=== PATIENT | male | born 1960 | race Caucasian/White ===

== ENCOUNTER 2016-10-22 07:23 | Inpatient (IN) | payer BC ==
[~2016-10-22] VITALS: Ht 182.9 cm; Wt 136.7 kg
[2016-10-22] MEDS ORDERED: PIPERACILLIN/TAZOBACTAM 4.5 GM/100ML D5W IV STA (07:45)
[2016-10-22] MEDS ORDERED: LEVAQUIN 750MG / 150ML D5W IV STA (07:45)
[2016-10-22] MEDS ORDERED: SODIUM CHLORIDE 0.9% 1000ML 1,000 ML IV STA (07:45)
[2016-10-22] MEDS ORDERED: ACETAMINOPHEN 500 MG TAB PO STA (07:45)
[2016-10-22] MEDS ORDERED: GEMF600T3 PO (07:49)
[2016-10-22] MEDS ORDERED: IBUP-1050 PO (07:49)
[2016-10-22] MEDS ORDERED: METF-384 PO (07:49)
[2016-10-22] MEDS ORDERED: GLIM2TAB2 PO (07:49)
[2016-10-22] MEDS ORDERED: BNC/20125 PO (07:49)
--- NOTE | 2016-10-22 07:54 | EMERGENCY ROOM VISIT NOTE ---
History First contact with patient: 07:34 Chief Complaint: FEVER Stated Complaint: BODY ACHES,NAUSEA History of Present Illness The patient is a 56 year old male who presents to the Emergency Room via private vehicle accompanied by with complaints of "body aches, nausea". The patient states that last Monday, 6 days ago, he began with what he aches and chills throughout his entire body. He states that since then he has been taking ibuprofen without relief and has associated sweating, and a rash in left groin. He did vomit once today, and has associated shortness of breath with a nonproductive cough which began today. He rates his overall pain as a 7/10, and is worse in the legs radiating up into his back and arms. He denies any chest pain, diarrhea, abdominal pain, urinary symptoms, having this before. He does have diabetes which he takes metformin. He notes that his recent blood sugars have been repeated. Review of Systems A complete 10-point Review of Systems was discussed with the patient, with pertinent positives and negatives listed in the History of Present Illness. All remaining Review of Systems questions can be considered negative unless otherwise specified. 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 Current/Historical Medications Scheduled Gemfibrozil (Lopid), 1 TAB PO BID Glimepiride (Glimepiride), 1 TAB PO DAILY Metformin Hcl (Glucophage), 1,000 MG PO BID Olmesartan/Hctz (Benicar Hct 20/12.5), 1 TAB PO DAILY Scheduled PRN Ibuprofen (Advil), 400 MG PO 3-4XD PRN for Fever Allergies Coded Allergies: Meperidine (Verified Allergy, Unknown, RASH, 10/22/16) Statins (Verified Allergy, Unknown, DELIRIUM, 10/22/16) cuases violent behavior Physical Exam Vital Signs Date Time Temp Pulse Resp B/P Pulse Ox O2 Delivery O2 Flow Rate FiO2 10/22/16 08:55 110 21 137/74 95 Nasal Cannula 2.0 10/22/16 08:22 117 18 105/60 92 Nasal Cannula 2.0 10/22/16 08:20 113 10/22/16 08:19 92 Nasal Cannula 2.0 10/22/16 07:39 Nasal Cannula 2.0 10/22/16 07:28 38.1 143 20 94/67 90 Room Air Physical Exam VITAL SIGNS - Vital signs and nursing notes were reviewed. Patient is febrile at 38.1, hypotensive at 94/64, tachycardic at a rate of 143 bpm, and is saturating on room air 90%. GENERAL -56-year-old male appearing his stated age who is in no acute distress. Patient is diaphoretic, and is warm to the touch. Communicates well with provider and answers questions appropriately. SKIN - in the left inguinal crease, there is a fine rash resembling a form of tinea. He is diaphoretic. HEAD - NC/AT. EYES - PERRL with EOMI bilaterally. Sclera anicteric. Palpebral conjunctiva pink and moist with no injection noted. EARS - No deformities of external structures noted on gross examination bilaterally. No pain elicited with palpation of the tragus bilaterally. External auditory canals without discharge or otorrhea. Tympanic membranes pearly ramirez without retraction or bulging. No fluid or purulent material visualized behind the TM. Handle of malleus, umbo, cone of light, pars tensa/ flaccid all easily visualized. NOSE - Midline and without cyanosis. No epistaxis or purulent drainage noted. Septum midline without deviation or septal hematoma noted. MOUTH/OROPHARYNX - Without perioral cyanosis. Buccal mucosa pink and moist and without leukoplakia. Tongue midline with equal elevation of palate bilaterally. No tonsillar hypertrophy, erythema, or exudates noted. Fair dentition noted. NECK - Neck with FROM. Supple to palpation. No lymphadenopathy noted. No nuchal rigidity. LUNGS - Chest wall symmetric without accessory muscle use, intercostals retractions, or central cyanosis. Patient's breath sounds are diminished bilaterally. No wheezes, rales, or rhonchi appreciated. CARDIAC - RRR with S1/S2. No murmur, rubs, or gallops appreciated. ABDOMEN - Abdominal contour without pulsations or visible masses. BS normoactive all four quadrants. No tenderness, palpable masses, hepatosplenomegaly, or ascites noted. EXTREMITIES - No clubbing or peripheral cyanosis. No pretibial edema present. NEUROLOGIC - Cranial nerves II through XII grossly intact. Sensory intact to light touch throughout. PSYCH - A&Ox3 and cooperates fully with examiner. Pt is very pleasant and interacts well with examiner. Medical Decision & Procedures ER Provider Diagnostic Interpretation: CHEST ONE VIEW PORTABLE CLINICAL HISTORY: Dyspnea, febrile COMPARISON STUDY: No previous studies for comparison. FINDINGS: Parenchymal infiltrate right base. Mild cardiomegaly. Lungs otherwise are clear. IMPRESSION: Infiltrate right base. Electronically signed by: Armani Escobar M.D. 10/22/2016 8:08 AM Dictated Date/Time: 10/22/2016 8:07 AM Laboratory Results 10/22/16 08:10 Red Blood Count 4.39, Mean Corpuscular Volume 84.1, Mean Corpuscular Hemoglobin 28.0, Mean Corpuscular Hemoglobin Concent 33.3, Mean Platelet Volume 9.6, Neutrophils (%) (Auto) 86.7, Lymphocytes (%) (Auto) 7.0, Monocytes (%) (Auto) 6.0, Eosinophils (%) (Auto) 0.0, Basophils (%) (Auto) 0.1, Neutrophils # (Auto) 7.32, Lymphocytes # (Auto) 0.59, Monocytes # (Auto) 0.51, Eosinophils # (Auto) 0.00, Basophils # (Auto) 0.01 10/22/16 08:10 Test 10/22/16 08:10 10/22/16 08:15 10/22/16 08:30 White Blood Count 8.45 K/uL (4.8-10.8) Red Blood Count 4.39 M/uL (4.7-6.1) Hemoglobin 12.3 g/dL (14.0-18.0) Hematocrit 36.9 % (42-52) Mean Corpuscular Volume 84.1 fL (80-100) Mean Corpuscular Hemoglobin 28.0 pg (25-34) Mean Corpuscular Hemoglobin Concent 33.3 g/dl (32-36) Platelet Count 171 K/uL (130-400) Mean Platelet Volume 9.6 fL (7.4-10.4) Neutrophils (%) (Auto) 86.7 % Lymphocytes (%) (Auto) 7.0 % Monocytes (%) (Auto) 6.0 % Eosinophils (%) (Auto) 0.0 % Basophils (%) (Auto) 0.1 % Neutrophils # (Auto) 7.32 K/uL (1.4-6.5) Lymphocytes # (Auto) 0.59 K/uL (1.2-3.4) Monocytes # (Auto) 0.51 K/uL (0.11-0.59) Eosinophils # (Auto) 0.00 K/uL (0-0.5) Basophils # (Auto) 0.01 K/uL (0-0.2) RDW Standard Deviation 40.5 fL (36.4-46.3) RDW Coefficient of Variation 13.3 % (11.5-14.5) Immature Granulocyte % (Auto) 0.2 % Immature Granulocyte # (Auto) 0.02 K/uL (0.00-0.02) Anion Gap 9.0 mmol/L (3-11) Est Creatinine Clear Calc Drug Dose 97.6 ml/min Estimated GFR () 77.3 Estimated GFR (Non- 66.7 BUN/Creatinine Ratio 21.4 (10-20) Calcium Level 9.0 mg/dl (8.5-10.1) Magnesium Level 1.8 mg/dl (1.8-2.4) Total Bilirubin 0.6 mg/dl (0.2-1) Aspartate Amino Transf (AST/SGOT) 31 U/L (15-37) Alanine Aminotransferase (ALT/SGPT) 30 U/L (12-78) Alkaline Phosphatase 86 U/L (45-117) Total Protein 7.8 gm/dl (6.4-8.2) Albumin 3.3 gm/dl (3.4-5.0) Globulin 4.5 gm/dl (2.5-4.0) Albumin/Globulin Ratio 0.7 (0.9-2) Lipase 177 U/L (73-393) 25-Hydroxy Vitamin D Total 63.7 ng/ml (30-100) Beta-Hydroxybutyric Acid 1.26 mg/dL (0.2-2.81) Chemistry Specimen Hemolysis Hepatitis C Antibody Screen NEG (NEG) Bedside Lactic Acid Venous 0.60 mmol/L (0.90-1.70) Urine Color DK YELLOW Urine Appearance CLEAR (CLEAR) Urine pH 5.0 (4.5-7.5) Urine Specific [place] 1.032 (1.000-1.030) Urine Protein 1+ (NEG) Urine Glucose (UA) NEG (NEG) Urine Ketones TRACE (NEG) Urine Occult Blood NEG (NEG) Urine Nitrite NEG (NEG) Urine Bilirubin NEG (NEG) Urine Urobilinogen NEG (NEG) Urine Leukocyte Esterase NEG (NEG) Urine WBC (Auto) 1-5 /hpf (0-5) Urine RBC (Auto) 5-10 /hpf (0-4) Urine Hyaline Casts (Auto) 5-10 /lpf (0-5) Urine Epithelial Cells (Auto) >30 /lpf (0-5) Urine Bacteria (Auto) NEG (NEG) Medications Administered Medications (Trade) Dose Ordered Sig/Kenrick Route Start Time Stop Time Status Last Admin Dose Admin Sodium Chloride (Nss 1000ml) 1,000 ml @ 999 mls/hr Q1H1M STAT IV 10/22/16 07:45 10/22/16 08:45 DC 10/22/16 08:26 999 MLS/HR Piperacillin Sod/ Tazobactam Sod (Zosyn Iv) 4.5 gm NOW STAT IV 10/22/16 07:45 10/22/16 07:52 DC 10/22/16 08:52 4.5 GM Levofloxacin (Levaquin / D5W) 750 mg NOW STAT IV 10/22/16 07:45 10/22/16 07:52 DC 10/22/16 11:03 750 MG Acetaminophen (Tylenol Tab) 1,000 mg NOW STAT PO 10/22/16 07:45 10/22/16 07:52 DC 10/22/16 08:26 1,000 MG Medical Decision Patient was seen and evaluated as above. Patient presents with hypotension, tachycardia, a fever and is diaphoretic. I'm concerned for sepsis. Stat IV access was initiated, and the above workup was performed. Patient was provided oxygen to improve his saturation. He is diaphoretic, was bolused with saline, and was given 4.5 mg of Zosyn and 750 mg of Levaquin. This is to treat a potential pneumonia clinically. X-ray verifies infiltrate right base. This was read by myself and the radiologist. I agree with radiologist findings. Patient was given morphine and Zofran for his pain, and subsequently Tylenol to help the fever. He was reevaluated and was feeling better, but persisted to be tachycardic, slightly hypertensive and febrile. I believe this time he can benefit from inpatient admission as I'm concerned that he has sepsis secondary to pneumonia. I did speak with my attending as well as the admitting physician who agreed to evaluate the patient. Please refer to further documentation regarding the patient's stay. It is of additional note that the patient's EKG reveals Sinus tachycardia Possible Left atrial enlargement, Incomplete right bundle branch block, Borderline ECG and No previous ECGs available. There is no previous for comparison. Patient was educated upon these findings. He was educated upon his lower for findings. There is no white count, and his lactic is diminished however clinically he does appear to be septic. Her blood cell count at 4.39, and hemoglobin of 12.3. BUN elevated at 26, glucose at 177, lactic acid 0.6, beta hydroxy Mateer casts and 1.26. Urine unremarkable for acute process. In evaluation treatment this patient the following differential diagnoses were entertained: Sepsis, pneumonia, SIRS, among others. Impression Primary Impression: Fever Additional Impressions: Anemia Pneumonia Departure Information Dispostion Admitted as an inpatient Condition FAIR Referrals Travis Dominique M.D. (PCP) Patient Instructions My [facility] Problem Qualifiers
--- NOTE | 2016-10-22 08:09 | DIAGNOSTIC IMAGING REPORT ---
CHEST ONE VIEW PORTABLE CLINICAL HISTORY: Dyspnea, febrile COMPARISON STUDY: No previous studies for comparison. FINDINGS: Parenchymal infiltrate right base. Mild cardiomegaly. Lungs otherwise are clear. IMPRESSION: Infiltrate right base. Electronically signed by: Armani Escobar M.D. 10/22/2016 8:08 AM Dictated Date/Time: 10/22/2016 8:07 AM
[2016-10-22 08:46] LABS: BASO % 0.1 %; BASO ABS # 0.01 K/uL (0-0.2); COMPLETE YES; HEMATOCRIT 36.9 % (42-52); IG% 0.2 %; LYMPH ABS # 0.59 K/uL (1.2-3.4); MEAN CELL VOLUME 84.1 fL (80-100); MEAN CORPUSCULAR HGB CONC 33.3 g/dl (32-36); MEAN PLATELET VOLUME 9.6 fL (7.4-10.4); NEUT % 86.7 %; PLATELET COUNT 171 K/uL (130-400); RED BLOOD COUNT 4.39 M/uL (4.7-6.1); WHITE BLOOD COUNT 8.45 K/uL (4.8-10.8)
[2016-10-22 08:53] LABS: URINE APPEARANCE CLEAR (CLEAR); URINE BILIRUBIN NEG (NEG); URINE COLOR DK YELLOW; URINE EPITHELIAL CELL AUTO >30 /lpf (0-5); URINE NITRITE NEG (NEG); URINE SPECIFIC GRAVITY 1.032 (1.000-1.030); UROBILINOGEN NEG (NEG); ZZUR CULT IF INDIC CLEAN CATCH NO
[2016-10-22 09:06] LABS: MANUAL MICROSCOPIC REQUIRED? NO; REVIEW REQ? NO
[2016-10-22 09:10] LABS: ALB/GLOB RATIO 0.7 (0.9-2); BETA-HYDROXYBUTYRATE 1.26 mg/dL (0.2-2.81); BUN/CREATININE RATIO 21.4 (10-20); CREATININE 1.2 mg/dl (0.60-1.40); MAGNESIUM 1.8 mg/dl (1.8-2.4); POTASSIUM 3.9 mmol/L (3.5-5.1)
[2016-10-22] MEDS ORDERED: ALBUT/IPRATROP 3MG/0.5MG NEB 3 ML VIAL INH PRN (10:30)
[2016-10-22] MEDS ORDERED: IBUPROFEN 200 MG TAB PO PRN (10:30)
[2016-10-22] MEDS ORDERED: ACETAMINOPHEN 325 MG TAB PO PRN (10:30)
[2016-10-22] MEDS ORDERED: POLYETHYLENE (MIRALAX) 17 GM PACK PO PRN (10:30)
[2016-10-22] MEDS ORDERED: ALUMINUM/MAGNESIUM/SIMETH (MAALOX MAX) 30 ML UDC PO PRN (10:30)
[2016-10-22] MEDS ORDERED: ONDANSETRON INJ 2 MG/ML 2 ML VIAL IV PRN (10:30)
[2016-10-22] MEDS ORDERED: MAGNESIUM HYDROXIDE SUSP 30 ML UDC PO PRN (10:30)
[2016-10-22] MEDS ORDERED: DEXTROSE 50% 50 ML SYR IV PRN (10:45)
[2016-10-22] MEDS ORDERED: GLUCOSE 10 TABS/TUBE PO PRN (10:45)
[2016-10-22] MEDS ORDERED: GLUCAGON FOR INJ 1 MG VIAL SQ PRN (10:45)
[2016-10-22] MEDS ORDERED: GLUCOSE 40% GEL 15 GM TUBE PO PRN (10:45)
[2016-10-22 10:53] VITALS: O2SAT 95; Ht 182.9 cm; Wt 136.7 kg
--- NOTE | 2016-10-22 11:47 | History and Physical ---
History & Physical Date & Time of Service: October 22, 2016 at 11:41 Chief Complaint: Body Aches,Nausea Primary Care Physician: Travis Dominique M.D. Social History Smoking Status: Never Smoker Multi-Drug Resistant Organisms History of MDRO: No Allergies Coded Allergies: Meperidine (Verified Allergy, Unknown, RASH, 10/22/16) Statins (Verified Allergy, Unknown, DELIRIUM, 10/22/16) cuases violent behavior Home Medications Scheduled Gemfibrozil (Lopid), 1 TAB PO BID Glimepiride (Glimepiride), 1 TAB PO DAILY Metformin Hcl (Glucophage), 1,000 MG PO BID Olmesartan/Hctz (Benicar Hct 20/12.5), 1 TAB PO DAILY Scheduled PRN Ibuprofen (Advil), 400 MG PO 3-4XD PRN for Fever Physical Exam Vital Signs Date Time Temp Pulse Resp B/P Pulse Ox O2 Delivery O2 Flow Rate FiO2 10/22/16 11:19 103 19 117/72 96 10/22/16 11:03 103 19 117/72 93 Nasal Cannula 2.0 10/22/16 10:58 100 10/22/16 10:53 95 Nasal Cannula 2.0 10/22/16 08:55 110 21 137/74 95 Nasal Cannula 2.0 10/22/16 08:22 117 18 105/60 92 Nasal Cannula 2.0 10/22/16 08:20 113 10/22/16 08:19 92 Nasal Cannula 2.0 10/22/16 07:39 Nasal Cannula 2.0 10/22/16 07:28 38.1 143 20 94/67 90 Room Air Diagnostics Laboratory Results Results Past 24 Hours Test 10/22/16 08:10 10/22/16 08:15 10/22/16 08:30 10/22/16 11:00 Range/Units White Blood Count 8.45 4.8-10.8 K/uL Red Blood Count 4.39 4.7-6.1 M/uL Hemoglobin 12.3 14.0-18.0 g/dL Hematocrit 36.9 42-52 % Mean Corpuscular Volume 84.1 80-100 fL Mean Corpuscular Hemoglobin 28.0 25-34 pg Mean Corpuscular Hemoglobin Concent 33.3 32-36 g/dl Platelet Count 171 130-400 K/uL Mean Platelet Volume 9.6 7.4-10.4 fL Neutrophils (%) (Auto) 86.7 % Lymphocytes (%) (Auto) 7.0 % Monocytes (%) (Auto) 6.0 % Eosinophils (%) (Auto) 0.0 % Basophils (%) (Auto) 0.1 % Neutrophils # (Auto) 7.32 1.4-6.5 K/uL Lymphocytes # (Auto) 0.59 1.2-3.4 K/uL Monocytes # (Auto) 0.51 0.11-0.59 K/uL Eosinophils # (Auto) 0.00 0-0.5 K/uL Basophils # (Auto) 0.01 0-0.2 K/uL RDW Standard Deviation 40.5 36.4-46.3 fL RDW Coefficient of Variation 13.3 11.5-14.5 % Immature Granulocyte % (Auto) 0.2 % Immature Granulocyte # (Auto) 0.02 0.00-0.02 K/uL Sodium Level 136 136-145 mmol/L Potassium Level 3.9 3.5-5.1 mmol/L Chloride Level 100 98-107 mmol/L Carbon Dioxide Level 27 21-32 mmol/L Anion Gap 9.0 3-11 mmol/L Blood Urea Nitrogen 26 7-18 mg/dl Creatinine 1.20 0.60-1.40 mg/dl Est Creatinine Clear Calc Drug Dose 97.6 ml/min Estimated GFR () 77.3 Estimated GFR (Non- 66.7 BUN/Creatinine Ratio 21.4 10-20 Random Glucose 177 70-99 mg/dl Calcium Level 9.0 8.5-10.1 mg/dl Magnesium Level 1.8 1.8-2.4 mg/dl Total Bilirubin 0.6 0.2-1 mg/dl Aspartate Amino Transf (AST/SGOT) 31 15-37 U/L Alanine Aminotransferase (ALT/SGPT) 30 12-78 U/L Alkaline Phosphatase 86 45-117 U/L Total Protein 7.8 6.4-8.2 gm/dl Albumin 3.3 3.4-5.0 gm/dl Globulin 4.5 2.5-4.0 gm/dl Albumin/Globulin Ratio 0.7 0.9-2 Lipase 177 73-393 U/L Beta-Hydroxybutyric Acid 1.26 0.2-2.81 mg/dL Chemistry Specimen Hemolysis Bedside Lactic Acid Venous 0.60 0.90-1.70 mmol/L Urine Color DK YELLOW Urine Appearance CLEAR CLEAR Urine pH 5.0 4.5-7.5 Urine Specific [place] 1.032 1.000-1.030 Urine Protein 1+ NEG Urine Glucose (UA) NEG NEG Urine Ketones TRACE NEG Urine Occult Blood NEG NEG Urine Nitrite NEG NEG Urine Bilirubin NEG NEG Urine Urobilinogen NEG NEG Urine Leukocyte Esterase NEG NEG Urine WBC (Auto) 1-5 0-5 /hpf Urine RBC (Auto) 5-10 0-4 /hpf Urine Hyaline Casts (Auto) 5-10 0-5 /lpf Urine Epithelial Cells (Auto) >30 0-5 /lpf Urine Bacteria (Auto) NEG NEG Microbiology Results 10/22/16 Blood Culture, Received Pending 10/22/16 Blood Culture, Received Pending Impression Assessment and Plan admit #[id number] Advanced Directives Existing Living Will: No Existing Power of Interpersonal Communications Professor: No VTE Prophylaxis VTE Risk Assessment Done? Y/N: Yes Risk Level: Moderate Given or contraindicated: Enoxaparin (Lovenox)SQ
[2016-10-22 12:00] VITALS: BP 129/78; PULSE 102; TEMP 37; O2SAT 97
[2016-10-22] MEDS ORDERED: SODIUM CHLORIDE 0.9% 1000ML 1,000 ML IV SCH (12:00)
--- NOTE | 2016-10-22 12:11 | HISTORY & PHYSICAL EXAMINATION ---
DATE OF ADMISSION: 10/22/2016 ADMISSION HISTORY AND PHYSICAL CHIEF COMPLAINT: Chills, body aches and weakness. HISTORY OF PRESENT ILLNESS: The patient is a very pleasant 56-year-old male who notes that around Monday night, so not quite a week ago he started just with feeling chills, weakness and malaise. He has had off again on again true shaking chills, fevers. He has not checked his temperature much, his son checked his temperature once or twice and saw things in the high 99s, but he also notes that there were definitely times he felt more feverish and just did not have access to a thermometer and this has been going on again off again for about the last week. He was seen at his PCP's office yesterday, symptoms being nonspecific, they checked labs, he had not heard back from things yet, but then this morning he was continuing to feel worse, so he came to the ER for further evaluation. REVIEW OF SYSTEMS: Negative for cough, shortness of breath, chest pain. Negative for any nausea, vomiting, diarrhea. Positive for the fevers, chills, sweats and general weakness. Review of systems is otherwise negative except for as above. PAST MEDICAL HISTORY: Includes diabetes and hyperlipidemia and hypertension. MEDICATIONS: Lopid, uncertain dose b.i.d., I believe probably 600 mg; glimepiride 1 tab daily, Advil 400 mg q.i.d. p.r.n., fevers and aches; metformin 1000 mg b.i.d. and Benicar/HCT 20/12.5 daily. ALLERGIES: INCLUDE MEPERIDINE AND STATINS. PAST SURGICAL HISTORY: He has had no chest surgeries and he has had a cholecystectomy. SOCIAL HISTORY: He is never a smoker. 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 FAMILY HISTORY: No notable family history at all. Most notably no family history of pulmonary or immunologic diseases. PHYSICAL EXAMINATION: VITAL SIGNS: Initial temp 38.1, pulse 143, respiratory rate 20, blood pressure 94/67, 90% on room air. GENERAL: He is awake, alert, oriented x3, fatigued appearing, but otherwise in no acute distress. HEENT: Normocephalic, atraumatic. Mucous membranes are moist. CARDIOVASCULAR: Now regular to maybe slightly tachycardic without rubs, murmurs, or gallops. LUNGS: Overall clear to auscultation, but knowing his chest x-ray before going in the room with very subjective bias, it is maybe slightly coarse with a faintest of rales at the right base but essentially sounds overall clear without other rales, rhonchi, or wheezes. No accessory muscle use. ABDOMEN: Soft, mildly distended, nontender. No masses or organomegaly. EXTREMITIES: Without cyanosis, clubbing or edema. No calf tenderness. SKIN: Shows no rashes, no pallor or icterus. NEUROLOGIC: Shows cranial nerves II-XII to be grossly intact. Gross motor and sensory are intact. MUSCULOSKELETAL: Shows a mild degree of right lower thoracic hypertonicity and decreased range of motion of his rib cage, myofascial release and balanced ligamentous tension were done with a degree of improvement in tissue texture changes. MENTAL STATUS: Shows good recent and remote recall. Normal mood and affect. Good judgment and insight. LABS AND DIAGNOSTICS: CBC shows a white count of 8.45, hemoglobin 12.3, platelets 171. Complete metabolic panel with a sodium 136, potassium 3.9, chloride 100, CO2 27, BUN 26, creatinine 1.2. Calcium 9, glucose 177, mag 1.8, total bili 0.6 with an AST of 31, ALT of 30, alkaline phosphatase 86, total protein 7.8, albumin 3.3, lipase 177, beta hydroxybutyrate 1.26. Lactate 0.6. Hepatitis C screen per guidelines is pending. Urinalysis - dark yellow, clear, specific gravity 1.032, trace ketones, greater than 30 epithelial cells. Chest x-ray reviewed by me as well as radiology shows a right base infiltrate. Radiology also noted mild cardiomegaly. ASSESSMENT AND PLAN: 1. Sepsis. This appears to be due to a right lower lobe pneumonia. 2. Acute mild but early hypoxic respiratory failure. This appears to be due to the pneumonia, oxygen supportive care and nebs p.r.n. 3. Right lower lobe community-acquired pneumonia. See above as far as "fallout" as well as a mildly elevated creatinine, although his baseline is not clear. His last creatinine I have on record is 0.9 from 6 years ago. At any rate, he is low risk for resistant pathogens given that he has not been hospitalized, dialysis, long term more antibiotics recently at all. He was started on Levaquin and Zosyn in the Emergency Room. We will continue the Levaquin. We had an extensive discussion about antibiotic choices for community-acquired pneumonia and the risk of tendinopathy or tendon rupture with Levaquin versus the raising risk of Clostridium difficile by altering his regimen yet again to Zithromax, Rocephin and after discussion, he is able to take it easy at work, so we opted to continue the Levaquin. Will utilize oxygen, nebulizers, supportive care, intravenous fluids for the sepsis part of it as well and given his occupational exposures to smoke while controversial, I did recommend a follow up chest x-ray in about 6 weeks to ensure clearing. 4. Uncontrolled type 2 diabetes. He notes that at his last visit, his A1c was seven point something and it was high enough that his PCP increased medications. We had an extensive discussion on the critical importance of lifestyle to control and/or put diabetes in remission and discussed how the diabetes uncontrolled certainly would be suppressing his immune system allowing infections like this to happen more easily. Will continue his Glucovance given that he does not have any florid renal failure, use his fingersticks and supplemental insulin as needed. 5. Wheezing and snoring. Given his smoke exposure at work and his noticing him wheezing, certainly it seems reasonable to get pulmonary function tests as an outpatient. He believes this will occur as part of HAZIAT physical this summer, if not, I would ask him to be referred to it and in regards to snoring, certainly with the snoring and his body habitus a sleep study appears to be warranted. 6. Hypertension. Given his sepsis, tachycardia and slightly elevated creatinine, will hold off on his antihypertensives until he is more hemodynamically stable. 7. Slightly elevated creatinine, uncertain what his baseline is these days. Certainly, it may be risen slightly because of the sepsis. Will follow up a basic metabolic panel in the morning. 8. Deep venous thrombosis prophylaxis, Lovenox. JAKY
[2016-10-22] MEDS: INSULIN ASPART 100 UNITS/ML 3 ML PEN SC SCH ×3 (12:15→20:14)
[2016-10-22 13:11] LABS: INR 1.1 (0.9-1.1); PARTIAL THROMBOPLASTIN RATIO 1.2; PROTHROMBIN TIME (PATIENT) 11.8 SECONDS (9.0-12.0)
[2016-10-22] MEDS: SODIUM CHLOR 0.45% + 20MEQ KCL 1,000 ML IV SCH ×2 (13:39→20:11)
[2016-10-22 14:53] VITALS: BP 130/68; PULSE 119; TEMP 38.1; O2SAT 91
[2016-10-22 17:18] VITALS: TEMP 37.4
[2016-10-22] MEDS: METFORMIN HCL 500 MG TAB PO SCH (17:19)
[2016-10-22 20:00] VITALS: O2SAT 91
[2016-10-22] MEDS: GEMFIBROZIL 600 MG TAB PO SCH (20:10)
[2016-10-22] MEDS: ENOXAPARIN 40 MG/0.4 ML SYR SQ SCH (20:14)
[2016-10-22 22:55] VITALS: BP 106/71; PULSE 124; TEMP 37.7; O2SAT 96
[2016-10-23] VITALS: O2SAT 91
[2016-10-23] MEDS: SODIUM CHLOR 0.45% + 20MEQ KCL 1,000 ML IV SCH ×3 (03:57→19:57)
[2016-10-23 05:37] LABS: BASO % 0.1 %; BASO ABS # 0.01 K/uL (0-0.2); COMPLETE YES; HEMATOCRIT 33.6 % (42-52); IG% 0.3 %; LYMPH % 12.6 %; LYMPH ABS # 0.86 K/uL (1.2-3.4); MEAN CELL VOLUME 85.3 fL (80-100); MEAN CORPUSCULAR HEMOGLOBIN 27.9 pg (25-34); MEAN CORPUSCULAR HGB CONC 32.7 g/dl (32-36); MEAN PLATELET VOLUME 9.1 fL (7.4-10.4); MONO % 15.5 %; NEUT % 71.5 %; PLATELET COUNT 142 K/uL (130-400); RED BLOOD COUNT 3.94 M/uL (4.7-6.1); WHITE BLOOD COUNT 6.85 K/uL (4.8-10.8)
[2016-10-23 06:11] LABS: BUN/CREATININE RATIO 16.4 (10-20); CALCIUM 8.4 mg/dl (8.5-10.1); CREATININE 0.95 mg/dl (0.60-1.40)
[2016-10-23 07:18] VITALS: BP 106/68; PULSE 84; TEMP 36.7; O2SAT 98
[2016-10-23] MEDS: INSULIN ASPART 100 UNITS/ML 3 ML PEN SC SCH ×4 (08:31→20:58)
[2016-10-23] MEDS: GLIMEPIRIDE 2 MG TAB PO SCH (08:40)
[2016-10-23] MEDS: GEMFIBROZIL 600 MG TAB PO SCH ×2 (08:40→19:57)
[2016-10-23] MEDS: METFORMIN HCL 500 MG TAB PO SCH ×2 (08:40→17:20)
[2016-10-23] MEDS: LEVOFLOXACIN 750 MG TAB PO SCH (08:41)
[2016-10-23 09:42] VITALS: O2SAT 94
[2016-10-23 11:54] VITALS: O2SAT 96
--- NOTE | 2016-10-23 12:00 | Progress Note ---
Subjective Date of Service: October 23, 2016. Subjective pt states he feels better, less fever and chills, some cough Problem List Medical Problems: (1) Anemia Status: Acute (2) Fever Status: Acute Review of Systems Constitutional: + weakness, No chills, No fever Respiratory: + cough, + sputum, No dyspnea on exertion, No shortness of breath Abdomen: No diarrhea, No nausea, No pain, No vomiting Male : No dysuria, No urinary frequency Psychiatric: No anhedonism, No depression symptoms Objective Vital Signs Date Time Temp Pulse Resp B/P Pulse Ox O2 Delivery O2 Flow Rate FiO2 10/23/16 07:18 36.7 84 20 106/68 98 Nasal Cannula 3.0 10/23/16 00:00 91 Nasal Cannula 2.0 10/22/16 22:55 37.7 124 20 106/71 96 Nasal Cannula 3.0 10/22/16 20:00 91 Nasal Cannula 2.0 10/22/16 17:18 37.4 10/22/16 14:53 38.1 119 20 130/68 91 Nasal Cannula 2.0 10/22/16 12:00 37.0 102 18 129/78 97 Nasal Cannula 2.0 10/22/16 11:19 103 19 117/72 96 10/22/16 11:03 103 19 117/72 93 Nasal Cannula 2.0 10/22/16 10:58 100 10/22/16 10:53 95 Nasal Cannula 2.0 10/22/16 08:55 110 21 137/74 95 Nasal Cannula 2.0 10/22/16 08:22 117 18 105/60 92 Nasal Cannula 2.0 10/22/16 08:20 113 10/22/16 08:19 92 Nasal Cannula 2.0 10/22/16 07:39 Nasal Cannula 2.0 10/22/16 07:28 38.1 143 20 94/67 90 Room Air Physical Exam General Appearance: WD/WN, + obese Neck: supple, no JVD Respiratory/Chest: chest non-tender, + decreased breath sounds, + rhonchi ( right base) Cardiovascular: regular rate, rhythm, no murmur Abdomen: normal bowel sounds, non tender, soft Extremities: no pedal edema, no calf tenderness Neurologic/Psychiatric: alert, oriented x 3 Laboratory Results Last 24 Hours Test 10/22/16 08:10 10/22/16 08:15 10/22/16 08:30 10/22/16 12:08 White Blood Count 8.45 K/uL Red Blood Count 4.39 M/uL Hemoglobin 12.3 g/dL Hematocrit 36.9 % Mean Corpuscular Volume 84.1 fL Mean Corpuscular Hemoglobin 28.0 pg Mean Corpuscular Hemoglobin Concent 33.3 g/dl Platelet Count 171 K/uL Mean Platelet Volume 9.6 fL Neutrophils (%) (Auto) 86.7 % Lymphocytes (%) (Auto) 7.0 % Monocytes (%) (Auto) 6.0 % Eosinophils (%) (Auto) 0.0 % Basophils (%) (Auto) 0.1 % Neutrophils # (Auto) 7.32 K/uL Lymphocytes # (Auto) 0.59 K/uL Monocytes # (Auto) 0.51 K/uL Eosinophils # (Auto) 0.00 K/uL Basophils # (Auto) 0.01 K/uL RDW Standard Deviation 40.5 fL RDW Coefficient of Variation 13.3 % Immature Granulocyte % (Auto) 0.2 % Immature Granulocyte # (Auto) 0.02 K/uL Sodium Level 136 mmol/L Potassium Level 3.9 mmol/L Chloride Level 100 mmol/L Carbon Dioxide Level 27 mmol/L Anion Gap 9.0 mmol/L Blood Urea Nitrogen 26 mg/dl Creatinine 1.20 mg/dl Est Creatinine Clear Calc Drug Dose 97.6 ml/min Estimated GFR () 77.3 Estimated GFR (Non- 66.7 BUN/Creatinine Ratio 21.4 Random Glucose 177 mg/dl Calcium Level 9.0 mg/dl Magnesium Level 1.8 mg/dl Total Bilirubin 0.6 mg/dl Aspartate Amino Transf (AST/SGOT) 31 U/L Alanine Aminotransferase (ALT/SGPT) 30 U/L Alkaline Phosphatase 86 U/L Total Protein 7.8 gm/dl Albumin 3.3 gm/dl Globulin 4.5 gm/dl Albumin/Globulin Ratio 0.7 Lipase 177 U/L 25-Hydroxy Vitamin D Total 63.7 ng/ml Beta-Hydroxybutyric Acid 1.26 mg/dL Chemistry Specimen Hemolysis Hepatitis C Antibody Screen NEG Bedside Lactic Acid Venous 0.60 mmol/L Urine Color DK YELLOW Urine Appearance CLEAR Urine pH 5.0 Urine Specific [place] 1.032 Urine Protein 1+ Urine Glucose (UA) NEG Urine Ketones TRACE Urine Occult Blood NEG Urine Nitrite NEG Urine Bilirubin NEG Urine Urobilinogen NEG Urine Leukocyte Esterase NEG Urine WBC (Auto) 1-5 /hpf Urine RBC (Auto) 5-10 /hpf Urine Hyaline Casts (Auto) 5-10 /lpf Urine Epithelial Cells (Auto) >30 /lpf Urine Bacteria (Auto) NEG Bedside Glucose 154 mg/dl Test 10/22/16 12:31 10/22/16 20:15 10/23/16 05:25 Prothrombin Time 11.8 SECONDS Prothromb Time International Ratio 1.1 Activated Partial Thromboplast Time 31.1 SECONDS Partial Thromboplastin Ratio 1.2 Bedside Glucose 136 mg/dl White Blood Count 6.85 K/uL Red Blood Count 3.94 M/uL Hemoglobin 11.0 g/dL Hematocrit 33.6 % Mean Corpuscular Volume 85.3 fL Mean Corpuscular Hemoglobin 27.9 pg Mean Corpuscular Hemoglobin Concent 32.7 g/dl Platelet Count 142 K/uL Mean Platelet Volume 9.1 fL Neutrophils (%) (Auto) 71.5 % Lymphocytes (%) (Auto) 12.6 % Monocytes (%) (Auto) 15.5 % Eosinophils (%) (Auto) 0.0 % Basophils (%) (Auto) 0.1 % Neutrophils # (Auto) 4.90 K/uL Lymphocytes # (Auto) 0.86 K/uL Monocytes # (Auto) 1.06 K/uL Eosinophils # (Auto) 0.00 K/uL Basophils # (Auto) 0.01 K/uL RDW Standard Deviation 42.1 fL RDW Coefficient of Variation 13.4 % Immature Granulocyte % (Auto) 0.3 % Immature Granulocyte # (Auto) 0.02 K/uL Sodium Level 139 mmol/L Potassium Level 4.0 mmol/L Chloride Level 104 mmol/L Carbon Dioxide Level 31 mmol/L Anion Gap 4.0 mmol/L Blood Urea Nitrogen 16 mg/dl Creatinine 0.95 mg/dl Est Creatinine Clear Calc Drug Dose 122.9 ml/min Estimated GFR () 102.6 Estimated GFR (Non- 88.5 BUN/Creatinine Ratio 16.4 Random Glucose 127 mg/dl Calcium Level 8.4 mg/dl Assessment and Plan 56 M with RLL pneumonia with history of Diabetes Acute mild but early hypoxic respiratory distress. hold home antihypertensives, oxygen supportive care and nebs p.r.n. Right lower lobe community-acquired pneumonia. Levaquin and Zosyn, has dense changes on exam be cautious for empyema, may consider repeat outpt x ray at shorter interval Type 2 diabetes. Glucovance plus ssi Wheezing and snoring. recommend pulmonary function tests as an outpatient. Deep venous thrombosis prophylaxis, Lovenox.
[2016-10-23 14:38] VITALS: BP 116/77; PULSE 90; TEMP 36.2; O2SAT 95
[2016-10-23] MEDS: ENOXAPARIN 40 MG/0.4 ML SYR SQ SCH (21:00)
[2016-10-23 23:05] VITALS: BP 97/61; PULSE 81; TEMP 36.9; O2SAT 96
[2016-10-24] MEDS: SODIUM CHLOR 0.45% + 20MEQ KCL 1,000 ML IV SCH (03:58)
[2016-10-24 07:50] VITALS: BP 119/77; PULSE 77; TEMP 36.8; O2SAT 95
[2016-10-24] MEDS: INSULIN ASPART 100 UNITS/ML 3 ML PEN SC SCH (08:33)
[2016-10-24 08:36] LABS: ESTIMATED AVERAGE GLUCOSE 140 mg/dl; HA1C FLAG Normal (Normal)
[2016-10-24] MEDS: GLIMEPIRIDE 2 MG TAB PO SCH (08:36)
[2016-10-24] MEDS: GEMFIBROZIL 600 MG TAB PO SCH (08:36)
[2016-10-24] MEDS: LEVOFLOXACIN 750 MG TAB PO SCH (08:37)
[2016-10-24] MEDS: METFORMIN HCL 500 MG TAB PO SCH (08:37)
[2016-10-24] MEDS ORDERED: LVQ750 PO (11:57)
--- NOTE | 2016-10-24 12:01 | Discharge Instructions ---
Discharge Instructions Date of Service October 24, 2016. Admission Reason for Admission: Pneumonia Discharge Discharge Diagnosis / Problem: Right lower lobe pneumonia Discharge Goals Goal(s): Decrease discomfort, Improve function, Increase independence, Improve disease control Activity Recommendations Activity Limitations: resume your previous activity Lifting Limitations: no more than 25 pounds, gradually increase as tolerated Exercise/Sports Limitations: gradually increase as tolerated May Resume Sexual Activity: when tolerated Shower/Bathe: no limitations Driving or Machine Use: no limitations . Instructions / Follow-Up Instructions / Follow-Up You were admitted to [facility] with shortness of breath, malaise, and fever and diagnosed with Right lower lobe pneumonia. During your stay here you were treated with intravenous antibiotics, fluids, and breathing therapies along with other supportive treatment. Imaging studies which were completed include CXR which showed the right lower lobe infiltrate. Continue taking levaquin 650 mg x 5 more days to complete a 7 day course. You should get a repeat Chest x-ray within 6 weeks to show clearance of the right lower lobe pneumonia. Follow up with your PCP within 1 week, mention repeat chest x-ray during this visit. Current Hospital Diet Patient's current hospital diet: Diabetes Type 2 Diet Discharge Diet Recommended Diet: Diabetes Type 2 Diet Pending Studies Studies pending at discharge: no Laboratory Results Hemoglobin A1c Test 10/23/16 05:25 Range/Units Estimated Average Glucose 140 mg/dl Hemoglobin A1c 6.5 H 4.5-5.6 % Medical Emergencies . Who to Call and When: Medical Emergencies: If at any time you feel your situation is an emergency, please call 911 immediately. . Non-Emergent Contact Non-Emergency issues call your: Primary Care Provider Call Non-Emergent contact if: you have a fever, temperature is above 100.5, you have any medication questions . Past History Medical & Surgical History: (1) Fever (2) Pneumonia . "Provider Documentation" section prepared by Natalia Bustamante. Attending Attestation: Pt seen/examined on day of discharge and care plan d/w GIORGIO Lucas. I agree w/ her discharge instructions as outlined; the only exception is that the levaquin is 750mg daily. Ravi Awad MD . VTE Core Measure Inpt VTE Proph given/why not?: Enoxaparin (Lovenox)SQ, Laila. Chavo, SCD's
--- NOTE | 2016-10-24 13:00 | Discharge Summary ---
Discharge Summary Date of Service October 24, 2016. (Chantal Bustamante PA-C) Discharge Summary Admission Date: October 22, 2016 at 10:27 Discharge Date: October 24, 2016 Discharge Disposition: Home Principal Diagnosis: RLL pneumonia Problems/Secondary Diagnoses: Uncontrolled DM II, anemia, morbid obesity with BMI > 40.9. Procedures: CHEST ONE VIEW PORTABLE CLINICAL HISTORY: Dyspnea, febrile COMPARISON STUDY: No previous studies for comparison. FINDINGS: Parenchymal infiltrate right base. Mild cardiomegaly. Lungs otherwise are clear. IMPRESSION: Infiltrate right base. Electronically signed by: Armani Escobar M.D. 10/22/2016 8:08 AM Dictated Date/Time: 10/22/2016 8:07 AM The status of this report is Signed. Consultations: None (Chantal Bustamante PA-C) Medication Reconciliation New Medications: Levofloxacin (Levofloxacin) 750 Mg Tab 750 MG PO DAILY@11 for 5 Days, #5 TAB Continued Medications: Gemfibrozil (Lopid) 600 Mg Tab 1 TAB PO BID for 90 Days, #180 TAB 3 Refills Glimepiride (Glimepiride) 2 Mg Tab 1 TAB PO DAILY for 90 Days, #90 TAB 3 Refills Ibuprofen (Advil) 200 Mg Tab 400 MG PO 3-4XD PRN for Fever, TAB Metformin Hcl (Glucophage) 1,000 Mg Tab 1000 MG PO BID, TAB Olmesartan/Hctz (Benicar Hct 20/12.5) Tab 1 TAB PO DAILY, TAB Discharge Exam The patient was seen and examined this morning. Pt reports doing very well today , he denies feeling short of breath with ambulation or at rest, he is coughing and bringing up some white to light yellow mucous. He denies any fever or chills overnight. He denies needing to wear O2 since being admitted. Pt already has a PCP appointment set up for this Monday. We discussed him needing a repeat CXR set up for within 6 weeks and he is agreeable to this. Review of Systems: Constitutional: No chills, No fatigue, No fever Eyes: No redness, No worsening of vision ENT: No sore throat, No trouble swallowing Respiratory: + cough, + sputum, No dyspnea on exertion, No hemoptysis, No shortness of breath Cardiovascular: No chest pain, No palpitations Abdomen: No nausea, No pain, No vomiting Musculoskeletal: No joint pain, No swelling Genitourinary - Female: No dysuria Neurologic: No balance problems, No memory loss, No numbness/tingling Psychiatric: No anxiety, No insomnia Endocrine: No fatigue Integumentary: No itch, No rash (Chantal Bustamante PA-C) Hospital Course H&P Per Owen Buchanan MD. HISTORY OF PRESENT ILLNESS: The patient is a very pleasant 56-year-old male who notes that around Monday night, so not quite a week ago he started just with feeling chills, weakness and malaise. He has had off again on again true shaking chills, fevers. He has not checked his temperature much, his son checked his temperature once or twice and saw things in the high 99s, but he also notes that there were definitely times he felt more feverish and just did not have access to a thermometer and this has been going on again off again for about the last week. He was seen at his PCP's office yesterday, symptoms being nonspecific, they checked labs, he had not heard back from things yet, but then this morning he was continuing to feel worse, so he came to the ER for further evaluation. PHYSICAL EXAMINATION: VITAL SIGNS: Initial temp 38.1, pulse 143, respiratory rate 20, blood pressure 94/67, 90% on room air. GENERAL: He is awake, alert, oriented x3, fatigued appearing, but otherwise in no acute distress. HEENT: Normocephalic, atraumatic. Mucous membranes are moist. CARDIOVASCULAR: Now regular to maybe slightly tachycardic without rubs, murmurs, or gallops. LUNGS: Overall clear to auscultation, but knowing his chest x-ray before going in the room with very subjective bias, it is maybe slightly coarse with a faintest of rales at the right base but essentially sounds overall clear without other rales, rhonchi, or wheezes. No accessory muscle use. ABDOMEN: Soft, mildly distended, nontender. No masses or organomegaly. EXTREMITIES: Without cyanosis, clubbing or edema. No calf tenderness. SKIN: Shows no rashes, no pallor or icterus. NEUROLOGIC: Shows cranial nerves II-XII to be grossly intact. Gross motor and sensory are intact. MUSCULOSKELETAL: Shows a mild degree of right lower thoracic hypertonicity and decreased range of motion of his rib cage, myofascial release and balanced ligamentous tension were done with a degree of improvement in tissue texture changes. MENTAL STATUS: Shows good recent and remote recall. Normal mood and affect. Good judgment and insight. Hospital Course: Pt was admitted on 10/22 with fever, malaise, cough and fever found to have a RLL pneumonia. Pt was treated empirically with a dose of zosyn and levaquin in the ed, then was continue on Levaquin. Pt was transitioned to oral levaquin while in the hospital. His breathing improved, cough lessened, and was afebrile. The patient already has a PCP appointment scheduled on Monday. He was encouraged to discuss repeat CXR with his PCP for within the next 6 weeks to show clearance. Pt was stable for discharge home. Total Time Spent: Greater than 30 minutes This includes examination of the patient, discharge planning, medication reconciliation, and communication with other providers. (Chantal Bustamante PA-C) Attending Discharge Note & Attestation: Pt seen/examined, chart reviewed, and care plan d/w GIORGIO Bustamante on day of discharge. I agree with the hanley components of her discharge summary. 56yo male with T2DM, HTN, and hyperlipidemia who presented with RLL pneumonia. He was treated with IV antibiotics and supportive care with rapid improvement in pulmonary symptoms. Blood cx's remained negative while here. He will complete a course of levaquin after discharge and will need repeat CXR in about 6 weeks to ensure radiographic resolution. The only other issue identified was that of mild, normocytic anemia. Presenting hemoglobin was 12.3. Outpatient work-up is recommended. Discharge exam: Gen - nad, obese neck - no JVD heart - RRR lungs - mild rales right base, otherwise CTA b/l abd - soft, NT, no HSM ext - no edema Ravi Awad MD (Ravi Awad MD) Discharge Instructions Please refer to the electronic Patient Visit Report (Discharge Instructions) for additional information. (Chantal Bustamante PA-C) Follow-Up Follow up with your Primary Care Provider within 1 week. CXR within 6 weeks to show clearance. (Chantal Bustamante, JELANIC) Additional Copies To Travis Dominique M.D.
--- NOTE | 2016-10-25 16:02 | EDITING REQUIRED CODING QUERY ---
SEPSIS Dear Dr. Buchanan, To promote full compliance with coding requirements relating to patient care, physician participation is requested in all cases of strategic planning director uncertainty. Please assist us with the question(s) below: In responding to this query, please exercise your independent professional judgement. The fact that a question is asked does not imply that any particular answer is desired or expected. We appreciate your clarification on this issue. Sepsis was documented on the H and P but was not on the Discharge Summary. Please clarify below by marking all that apply with a (X) in parenthesis. ASSESSMENT AND PLAN: 1. Sepsis. This appears to be due to a right lower lobe pneumonia. ( )Bacteremia (Nonspecific laboratory finding of bacteria in the blood) Specify Organism ( ) Present on Admission (x ) Not present on admission () Unable to clinically determine ( ) Septicemia (Systemic disease associated with the presence of pathogenic microorganisms in the blood): Specify Organism ( ) Present on Admission (x ) Not present on admission () Unable to clinically determine for the above, please note that his blood cultures were negative ( x) Sepsis Specify Organism unable to determine due to negative cultures (which frequently occurs with pneumonias) Specify Associated Condition/Diagnosis (x ) Present on Admission () Not present on admission () Unable to clinically determine ( ) Severe Sepsis (Sepsis associated with acute organ dysfunction) Specify Organism Specify Associated Condition/Diagnosis ( ) Present on Admission () Not present on admission (x) Unable to clinically determine --- please see my discussion in H&P - unclear what his baseline creatinine is, but was possibly up some related to sepsis, but truly unable to determine at the time of admission ( ) Septic Shock (Severe sepsis with acute circulatory failure, unexplained by other causes) ( ) Present on Admission (x) Not present on admission (see H&P and vitals) () Unable to clinically determine ( ) Other, patient has: ( ) Sepsis was ruled out Thank you for your time. Brittni Landaverde, BLOOD BANK ASSISTANT
== END 2016-10-24 13:11 | disposition home or self-care (01) | DRG 871 ==
LOC: ENRESERVTM → ENRESERVDT → C.EDB 07:25 → C.4E 10:27
PROVIDERS: ADMIT Family Medicine; ATTEND Internal Medicine
DX: A41.9 Sepsis, unspecified organism (principal); J18.9 Pneumonia, unspecified organism; Z68.41 Body mass index [BMI] 40.0-44.9, adult; D64.9 Anemia, unspecified; E66.01 Morbid (severe) obesity due to excess calories; R06.2 Wheezing; R06.83 Snoring; R06.00 Dyspnea, unspecified; R79.89 Other specified abnormal findings of blood chemistry; R09.02 Hypoxemia; E11.65 Type 2 diabetes mellitus with hyperglycemia; Z79.899 Other long term (current) drug therapy; Z79.1 Long term (current) use of non-steroidal anti-inflammatories (NSAID); Z79.84 Long term (current) use of oral hypoglycemic drugs

== ENCOUNTER → 2016-12-09 | Outpatient (CLI) | payer BC ==
[~2016-12-09] MED LIST: BNC/20125 PO; GEMF600T3 PO; GLIM2TAB2 PO; IBUP-1050 PO; LVQ750 PO; METF-384 PO
--- NOTE | 2016-12-09 09:26 | DIAGNOSTIC IMAGING REPORT ---
CHEST 2 VIEWS ROUTINE CLINICAL HISTORY: J18.9 PNEUMONIA COMPARISON STUDY: 10/22/2016 FINDINGS: The heart is mildly enlarged. There are improving right basilar airspace opacities. There are minimal left basilar atelectatic changes. There is no failure. There are no pleural effusions.[ IMPRESSION: Improving right basilar airspace opacities Electronically signed by: Higinio Haywood M.D. 12/09/2016 9:25 AM Dictated Date/Time: 12/09/2016 9:24 AM
== END | disposition home or self-care (01) ==
LOC: C.RAD1850 09:11
PROVIDERS: ATTEND Family Medicine
DX: J18.9 Pneumonia, unspecified organism (principal)

== ENCOUNTER → 2017-06-26 | Day surgery (SDC) | payer BC ==
[2017-06-14 14:33] VITALS: Ht 182.9 cm; Wt 134.1 kg
[~2017-06-26] VITALS: Ht 182.9 cm; Wt 134.1 kg
[~2017-06-26] MED LIST changes: +ASPCH81X PO; +FENTANYL CITRATE INJ 50 MCG/1 ML 2 ML VIAL ONE; -IBUP-1050 PO; +LIDOCAINE HCL 2% 2 ML VIAL (20MG/ML) ONE; -LVQ750 PO; +PROPOFOL IV EMULSION 10 MG/ML 20 ML VIAL IV ONE; +SODIUM CHLORIDE 0.9% 500ML 500 ML IV ONE
--- NOTE | 2017-06-26 14:43 | Endo History and Physical ---
History & Physical Date of Service: Jun 26, 2017. Chief Complaint: Screening Referring Physician: Dr Dominique History of Present Illness colon screen Past Surgical History Hx Cardiac Surgery: No Hx Internal Defibrillator: No Hx Pacemaker: No Hx Abdominal Surgery: Yes (TATI, UMBILICAL HERNIA ) Hx of Implantable Prosthesis: No Hx Post-Op Nausea and Vomiting: No Hx Cancer Surgery: No Hx Thoracic Surgery: No Hx Orthopedic: No Hx Urinary Tract Surgery: No Family History None Social History Smoking Status: Never Smoker Hx Substance Use: No Hx Alcohol Use: Yes (RARELY) Allergies Coded Allergies: Meperidine (Verified Allergy, Unknown, RASH, 06/14/17) Statins (Verified Allergy, Unknown, AGITATED, 06/14/17) Current Medications Reported Home Medications Medications Dose Route/Sig Max Daily Dose Days Date Category Aspirin Chewable (Aspirin) 81 Mg Chew 81 Mg PO QAM 06/14/17 Reported Glimepiride 2 Mg Tab 1 Tab PO QAM 10/22/16 Reported Benicar Hct 20/12.5 (Olmesartan/HCTZ) Tab 1 Tab PO QAM 10/22/16 Reported Glucophage (Metformin Hcl) 1,000 Mg Tab 1,000 Mg PO BID 10/22/16 Reported Lopid (Gemfibrozil) 600 Mg Tab 1 Tab PO BID 90 10/22/16 Reported Vital Signs Weight (Kilograms): 134.09 Height (Feet): 6 Height (Inches): 0 Date Time Temp Pulse Resp B/P (MAP) Pulse Ox O2 Delivery O2 Flow Rate FiO2 06/26/17 14:12 36.5 75 20 140/73 (95) 98 Room Air Physical Exam General Appearance: WD/WN, no apparent distress Respiratory/Chest: Auscultation: breath sounds normal Cardiovascular: Heart Auscultation: RRR Abdomen: Bowel Sounds: normal Inspection & Palpation: soft, non-distended, no tenderness, guarding & rebound colon screen Assessment and Plan colon screen
--- NOTE | 2017-06-26 15:21 | Discharge Instructions ---
Endoscopy Patient Instructions Date / Procedure(s) Performed Jun 26, 2017. Colonoscopy Allergy Information Coded Allergies: Meperidine (Verified Allergy, Unknown, RASH, 06/14/17) Statins (Verified Allergy, Unknown, AGITATED, 06/14/17) Discharge Date / Findings Jun 26, 2017. normal colon Medication Instructions Stopped Medication(s): ASA, Metformin, Glimepiride, Lopid Restart Stopped Medication(s): Reported Home Medications Medications Dose Route/Sig Max Daily Dose Days Date Category Aspirin Chewable (Aspirin) 81 Mg Chew 81 Mg PO QAM 06/14/17 Reported Glimepiride 2 Mg Tab 1 Tab PO QAM 10/22/16 Reported Benicar Hct 20/12.5 (Olmesartan/HCTZ) Tab 1 Tab PO QAM 10/22/16 Reported Glucophage (Metformin Hcl) 1,000 Mg Tab 1,000 Mg PO BID 10/22/16 Reported Lopid (Gemfibrozil) 600 Mg Tab 1 Tab PO BID 90 10/22/16 Reported Reported Home Medications Medications Dose Route/Sig Max Daily Dose Days Date Category Aspirin Chewable (Aspirin) 81 Mg Chew 81 Mg PO QAM 06/14/17 Reported Glimepiride 2 Mg Tab 1 Tab PO QAM 10/22/16 Reported Benicar Hct 20/12.5 (Olmesartan/HCTZ) Tab 1 Tab PO QAM 10/22/16 Reported Glucophage (Metformin Hcl) 1,000 Mg Tab 1,000 Mg PO BID 10/22/16 Reported Lopid (Gemfibrozil) 600 Mg Tab 1 Tab PO BID 90 10/22/16 Reported Provider Instructions Activity Restrictions - No exercising or heavy lifting for 24 hours. - Do not drink alcohol the day of the procedure. - Do not drive a car or operate machinery until the day after the procedure. - Do not make any important decisions or sign important papers in 24 hours after the procedure. Following Day: - Return to full activity which may include returning to work/school. Diet Start your diet with liquids and light foods (jello, soup, juice, toast). Then eat your usual diet if not nauseated. Treatment For Common After Affects For mild abdominal pain, bloating, or excessive gas: - Rest - Eat lightly - Lie on right side Follow-Up Information Follow-up with Dr Dominique as scheduled Anesthesia Information What You Should Know You have had a procedure that required some medicine to reduce anxiety and discomfort. This treatment is called moderate sedation. After receiving the treatment, you may be sleepy, but you will be able to breathe on your own. The effects of the treatment may last for several hours. Follow these instructions along with Activity/Diet recommendations noted above: * Do NOT do anything where dizziness or clumsiness would be dangerous. * Rest quietly at home today, then you can be up and about tomorrow. * Have a responsible person stay with you the rest of today. * You may have had an I.V. today. If so, you may take the dressing off later today. Recommendations Call your doctor if: * Trouble breathing * Continuous vomiting for more than 24 hours * Temperature above 101 degrees * Severe abdominal pain or bloating * Pain not relieved by pain medicine ordered * There is increased drainage or redness from any incision * A large amount of rectal bleeding greater than 2-3 tablespoons. (If you had a polyp/s removed or have hemorrhoids, a small amount of blood - from the rectum is to be expected.) * You have any unanswered questions or concerns. IN THE EVENT OF A SERIOUS EMERGENCY, GO TO THE NEAREST EMERGENCY ROOM Your discharge instructions were prepared by provider [facility]. Patient Instructions Signature Page Maury Roman Patient (or Guardian) Signature/Date: I have read and understand the instructions given to me by my caregivers. Caregiver/RN/Doctor Signature/Date: The above-named patient and/or guardian has received patient instructions on this date. + Original Patient Signature Page (only) stays with chart. Please make copy for patient.
--- NOTE | 2017-06-26 15:22 | GI REPORT ---
Procedure Date: 06/26/2017 2:23 PM Procedure: Colonoscopy Indications: High risk colon cancer surveillance: Personal history of colonic polyps (Lipoma in sigmoid colon 2010) Medicines: Propofol per Anesthesia Complications: No immediate complications. Estimated blood loss: None. Estimated Blood Loss: Estimated blood loss: none. Procedure: Pre-Anesthesia Assessment: - Prior to the procedure, a History and Physical was performed, and patient medications and allergies were reviewed. The patient's tolerance of previous anesthesia was also reviewed. The risks and benefits of the procedure and the sedation options and risks were discussed with the patient. All questions were answered, and informed consent was obtained. Prior Anticoagulants: The patient has taken no previous anticoagulant or antiplatelet agents. ASA Grade Assessment: III - A patient with severe systemic disease. After reviewing the risks and benefits, the patient was deemed in satisfactory condition to undergo the procedure. After I obtained informed consent, the scope was passed under direct vision. Throughout the procedure, the patient's blood pressure, pulse, and oxygen saturations were monitored continuously. The scope was introduced through the anus and advanced to the cecum, identified by appendiceal orifice and ileocecal valve. The colonoscopy was performed without difficulty. The patient tolerated the procedure well. The quality of the bowel preparation was good. Findings: The perianal and digital rectal examinations were normal. Pertinent negatives include normal sphincter tone, no palpable rectal lesions and no anal lesion or abnormality was detected. The colon (entire examined portion) appeared normal. The retroflexed view of the distal rectum and anal verge was normal and showed no anal or rectal abnormalities. Impression: - The entire examined colon is normal. - The distal rectum and anal verge are normal on retroflexion view. - No specimens collected. Recommendation: - Discharge patient to home (ambulatory). - Resume regular diet. - Continue present medications. - Repeat colonoscopy in 10 years for screening purposes. - Return to referring physician as previously scheduled. MD Home Beltran MD 06/26/2017 3:22:04 PM This report has been signed electronically. Note Initiated On: 06/26/2017 2:23 PM I attest to the content of the Intraoperative Record and orders documented therein, exceptions below
--- NOTE | 2017-06-26 15:22 | Anesthesiology Progress Note ---
Anesthesia Post Op Note Date & Time Jun 26, 2017 at 15:21 Vital Signs Vital Signs Past 12 Hours Date Time Temp Pulse Resp B/P (MAP) Pulse Ox O2 Delivery O2 Flow Rate FiO2 06/26/17 14:12 36.5 75 20 140/73 (95) 98 Room Air Notes Mental Status: alert / awake / arousable, participated in evaluation Pt Amnestic to Procedure: Yes Nausea / Vomiting: adequately controlled Pain: adequately controlled Airway Patency, RR, SpO2: stable & adequate BP & HR: stable & adequate Hydration State: stable & adequate Anesthetic Complications: no major complications apparent
[2017-06-26 15:49] VITALS: BP 116/70; PULSE 69; O2SAT 96
== END | disposition home or self-care (01) ==
LOC: C.GI 13:49
PROVIDERS: ATTEND Internal Medicine Gastroenterology
DX: Z12.11 Encounter for screening for malignant neoplasm of colon (principal); Z86.010 Personal history of colon polyps; I10 Essential (primary) hypertension; E11.9 Type 2 diabetes mellitus without complications; Z90.49 Acquired absence of other specified parts of digestive tract; Z98.890 Other specified postprocedural states; Z79.82 Long term (current) use of aspirin; E66.9 Obesity, unspecified; Z68.41 Body mass index [BMI] 40.0-44.9, adult